=== PATIENT | male | born 1995 | race African-American/Black ===

== ENCOUNTER 2018-03-03 19:23 | Emergency (ER) | payer SELFPAY ==
[2018-03-03 19:33] VITALS: BP 144/73; PULSE 85; TEMP 98.6; BMI 20.9
--- NOTE | 2018-03-03 19:33 | PDOC ---
Rapid Medical Evaluation Time Seen by Provider: 03/03/18 19:31 Medical Evaluation: 03/03/18 19:32 I have performed a brief-in person evaluation of this patient. The patient presents with a chief complaint of:Neg pain on urination. "I had gonorrhea"[id number] ago +++clear penile d/c" Pertinent physical exam findings: Abd soft. NT,ND I have ordered the following:ua/uc/ustd The patient will proceed to the ED for further evaluation.
[2018-03-03 20:19] LABS: URINE APPEARANCE CLEAR; URINE BILIRUBIN NEGATIVE (<2.0 mg/dL); URINE COLOR LTYELLOW; URINE GLUCOSE (UA) NEGATIVE (NEGATIVE); URINE KETONE NEGATIVE (NEGATIVE); URINE LEUK ESTERASE NEGATIVE (NEGATIVE); URINE NITRITE NEGATIVE (NEGATIVE); URINE PROTEIN NEGATIVE (NEGATIVE); URINE UROBILINOGEN NEGATIVE mg/dL (0.2-1.0)
[2018-03-03] MEDS ORDERED: AZITHROMYCIN 500 MG TABLET ONE (20:45)
[2018-03-03] MEDS ORDERED: AZITHROMYCIN 1 GM PACKET PO ONE (20:46)
--- NOTE | 2018-03-03 20:47 | PDOC ---
History of Present Illness - General Chief Complaint: Urinary Problem Stated Complaint: UTI Time Seen by Provider: 03/03/18 19:31 History Source: Patient Exam Limitations: No Limitations - History of Present Illness Travel History: No Initial Comments: 03/03/18 20:42 This 23-year-old male without significant past medical history who presents emergency Department with clear penile discharge, urinary hesitancy, urinary frequency for the past 2 weeks. Patient states she's had two female partners for which she's been having unprotected oral and vaginal sex within the past 4 weeks. Patient denies any fevers, chills, testicular pain, bloody ejaculate or hematuria. Past History - Past Medical History Allergies/Adverse Reactions: Allergies Allergy/AdvReac Type Severity Reaction Status Date / Time No Known Allergies Allergy Verified 03/03/18 19:34 Home Medications: Ambulatory Orders NK [No Known Home Medication] 03/03/18 COPD: No Other medical history: Hx STD - Immunization History Immunization Up to Date: Yes - Suicide/Smoking/Psychosocial Hx Smoking History: Never smoked Have you smoked in the past 12 months: No Information on smoking cessation initiated: No Hx Alcohol Use: Yes (SOCIAL) Drug/Substance Use Hx: No Substance Use Type: None Review of Systems - Review of Systems Able to Perform ROS?: Yes Is the patient limited Bulgarian proficient: No Constitutional: No: Symptoms Reported HEENTM: No: Symptoms Reported Respiratory: No: Symptoms reported Cardiac (ROS): No: Symptoms Reported ABD/GI: No: Symptoms Reported : Yes: See HPI Musculoskeletal: No: Symptoms Reported Integumentary: No: Symptoms Reported Neurological: No: Symptoms reported *Physical Exam - Vital Signs Last Vital Signs Temp Pulse Resp BP Pulse Ox 98.6 F 85 20 144/73 99 03/03/18 19:30 03/03/18 19:30 03/03/18 19:30 03/03/18 19:30 03/03/18 19:30 - Physical Exam General Appearance: Yes: Appropriately Dressed. No: Apparent Distress Gastrointestinal/Abdominal: positive: Normal Bowel Sounds, Soft. negative: Tender Male Genitalia: positive: normal genitalia, discharge (clear). negative: testicular tenderness, testicular mass, epididymus tender ED Treatment Course - ADDITIONAL ORDERS Additional order review: Laboratory Results 03/03/18 19:53 Urine Color Ltyellow Urine Appearance Clear Urine pH 6.0 Ur Specific [place] 1.017 Urine Protein Negative Urine Glucose (UA) Negative Urine Ketones Negative Urine Blood Negative Urine Nitrite Negative Urine Bilirubin Negative Urine Urobilinogen Negative Ur Leukocyte Esterase Negative Medical Decision Making - Medical Decision Making 03/03/18 20:44 A/P: Next line 23-year-old male with history of gonorrhea presents with clear penile discharge, urinary hesitancy, urinary frequency, urethral burning for the past 2 weeks Uncircumcised male penis with clear urethral discharge noted Testicles without any masses. No erythema or tenderness noted Abdomen soft nontender nondistended. UA, urine culture, urine GC Ceftriaxone 250 mg IM Azithromycin 1 g orally Discharge *DC/Admit/Observation/Transfer Diagnosis at time of Disposition: Discharge from penis - Discharge Dispostion Disposition: HOME Condition at time of disposition: Stable Decision to Admit order: No - Referrals - Patient Instructions Additional Instructions: You been treated today with azithromycin 1 g by mouth for treatment of presumed chlamydia You have been treated with Rocephin 250 mg injection for treatment of presumned gonorrhea The syphilis test, gonorrhea and chlamydia testing will not be completed for the next few days. You may call and leave message for return phone call with lab results. Be sure to be clear with your name, birthdate, and phone number Always use condoms with the partners Followup with PMD in one week for reevaluation and retesting. - Post Discharge Activity
== END 2018-03-03 20:53 | disposition home or self-care (01) ==
LOC: JERFT 19:23
DX: R36.9 Urethral discharge, unspecified (principal)
CPT/HCPCS: 36415; 81003; 87086; 87491; 87591; 99281-25

== ENCOUNTER 2020-06-16 02:04 | Emergency (ER) | payer SELFPAY ==
[2020-06-16] MEDS ORDERED: AZITHROMYCIN 500 MG TABLET PO ONE (02:27)
--- NOTE | 2020-06-16 02:30 | PDOC ---
History of Present Illness - General Chief Complaint: Penile Drainage Stated Complaint: STD CHECK Time Seen by Provider: 06/16/20 02:22 History Source: Patient Exam Limitations: No Limitations - History of Present Illness Initial Comments: 25 yo M w a hx of chlamydia comes in with perry discharge from his penis, recent unprotected sex with questionably infected individual, concerned he has chlamydia again. Denies penile sores or pain. ortiz discharge has been present for 2 days. Past History - Medical History Allergies/Adverse Reactions: Allergies Allergy/AdvReac Type Severity Reaction Status Date / Time No Known Allergies Allergy Verified 06/16/20 02:23 Home Medications: Ambulatory Orders Amox-Tr/K Cl [Augmentin - 875Mg Tablet] 1 tab PO BID #14 tablet 03/12/20 COPD: No - Immunization History Immunization Up to Date: Yes - Psycho-Social/Smoking History Smoking History: Never smoked Have you smoked in the past 12 months: No Information on smoking cessation initiated: No - Substance Abuse Hx (Audit-C & DAST Scrn) How often the patient has a drink containing alcohol: Never Score: In Men: 4 or > Positive; In Women: 3 or > Positive: 0 Screen Result (Pos requires Nsg. Audit-10AR): Negative In the last yr the pt used illegal drug/Rx for NonMed reason: No Score: Yes response is considered Positive: 0 Screen Result (Positive result requires Nsg. DAST-10): Negative Review of Systems - Review of Systems Able to Perform ROS?: Yes Comments:: CONSTITUTIONAL: Absent: fever, no chills, no fatigue EYES: Absent: visual changes ENT: Absent: ear pain, no sore throat CARDIOVASCULAR: Absent: chest pain, no palpitations RESPIRATORY: Absent: cough, no SOB GI: Absent: abdominal pain, no nausea, no vomiting, no constipation, no diarrhea GENITOURINARY: Present: Dysuria Absent: no frequency, no hematuria MUSKULOSKELETAL: Absent: back pain, no arthralgia, no myalgia SKIN: Absent: rash NEURO: Absent: headache *Physical Exam - Vital Signs Last Vital Signs Temp Pulse Resp BP Pulse Ox 98.6 F 61 18 107/63 100 06/16/20 02:21 06/16/20 02:21 06/16/20 02:21 06/16/20 02:21 06/16/20 02:21 - Physical Exam GENITOURINARY: Ortiz discharge can be expressed from the urethral tip. No ulcers or warts. GENERAL: Well-appearing, well-nourished. No apparent distress. HEENT: Normocephalic, atraumatic. PERRL, EOM intact. CARDIOVASCULAR: Normal S1, S2. Regular rate and rhythm. PULMONARY: No evidence of respiratory distress. Lungs clear to auscultation bilaterally. No wheezing, rales or rhonchi. ABDOMEN: Soft, non-distended, non-tender. EXTREMITIES: Normal ROM in all four extremities. No gross deformities. SKIN: Warm, dry. No rash NEUROLOGICAL: No focal neurological deficits. Medical Decision Making - Medical Decision Making 25 yo M w a hx of chlamydia comes in with perry discharge from his penis, recent unprotected sex with questionably infected individual, concerned he has chlamy christopher again. Denies penile sores or pain. ortiz discharge has been present for 2 days. MDM: Ortiz discharge consistent with chlamydia Plan: ceftriaxone, azithromycin, ua, uc, sexual abstinence 14 days, partner needs treatment Discharge - Discharge Information Problems reviewed: Yes Clinical Impression/Diagnosis: Chlamydia, Discharge from penis Condition: Improved Disposition: HOME - Admission No - Follow up/Referral Referrals: [facility] [place] [facility] [place] [Provider Group] - Patient Discharge Instructions Patient Printed Discharge Instructions: Chlamydia Additional Instructions: You came into the ED with perry discharge consistent with chlamyidia. We treated you in the emergency room. Please refrain from sexual activity for the next 14 days. Your partner needs to be treated as well. You must return to the Emergency Department with any new complaints, if your symptoms persist and do not improve or if you develop any other new or worsening concerns. You can take over the counter Tylenol or Advil as needed for pain. Take as directed on the package insert. Do not exceed the recommended dosage. As discussed, please call to follow up with your Primary Care physician in 1-2 days to discuss what happened to you in the emergency room, and make sure you are being looked after and taken care of. Your emergency room visit is not complete without this follow up appointment. Please read the attached handouts for further information about your ER visit and what you should do moving forward. Thank you for coming to the [place] [facility]. We hope you feel better soon! Print Language: SINHALA - Post Discharge Activity
[2020-06-16] MEDS ORDERED: AZITHROMYCIN 250 MG TABLET ONE (02:39)
[2020-06-16 02:40] VITALS: BP 107/63; PULSE 61; TEMP 98.6; BMI 21.7
[2020-06-16 02:46] LABS: EPI CELLS 6 /uL (0-25.1); HYALINE CASTS 7 /uL (0-3.1); URINE APPEARANCE CLEAR; URINE BACTERIA 18 /uL (0-1359); URINE BILIRUBIN NEGATIVE (NEGATIVE); URINE COLOR YELLOW; URINE GLUCOSE (UA) NEGATIVE (NEGATIVE); URINE KETONE TRACE (NEGATIVE); URINE LEUK ESTERASE 1+ (NEGATIVE); URINE NITRITE NEGATIVE (NEGATIVE); URINE PROTEIN NEGATIVE (NEGATIVE); URINE RBC 8 /uL (0-23.9); URINE WBC 120 /uL (0-25.8)
--- NOTE | 2020-06-16 02:50 | PDOC ---
Attending Attestation - Resident Resident Name: Ghulam Juarez - ED Attending Attestation I have performed the following: I have examined & evaluated the patient, The case was reviewed & discussed with the resident, I agree w/resident's findings & plan - HPI HPI: 06/16/20 02:50 Pt comes with STD exposure - Physicial Exam PE: 06/16/20 06:59 agree with resident exam - Medical Decision Making 06/16/20 06:59 Pt will be treated prophylactically for GC and chalmydia 06/16/20 06:59 UA shows 120 WBC and only 18 bacteria. Pt is stable for d/c. Discharge - Discharge Information Problems reviewed: Yes Clinical Impression/Diagnosis: Chlamydia, Discharge from penis Condition: Improved Disposition: HOME - Follow up/Referral Referrals: [facility] [place] [facility] [place] [Provider Group] - Patient Discharge Instructions Patient Printed Discharge Instructions: Chlamydia Additional Instructions: You came into the ED with perry discharge consistent with chlamyidia. We treated you in the emergency room. Please refrain from sexual activity for the next 14 days. Your partner needs to be treated as well. You must return to the Emergency Department with any new complaints, if your symptoms persist and do not improve or if you develop any other new or worsening concerns. You can take over the counter Tylenol or Advil as needed for pain. Take as directed on the package insert. Do not exceed the recommended dosage. As discussed, please call to follow up with your Primary Care physician in 1-2 days to discuss what happened to you in the emergency room, and make sure you are being looked after and taken care of. Your emergency room visit is not complete without this follow up appointment. Please read the attached handouts for further information about your ER visit and what you should do moving forward. Thank you for coming to the [place] [facility]. We hope you feel better soon! Print Language: [place] - Post Discharge Activity
== END 2020-06-16 02:52 | disposition home or self-care (01) ==
LOC: JER 02:04
DX: A74.9 Chlamydial infection, unspecified (principal)
CPT/HCPCS: 36415; 81003; 87086; 87491; 87591; 99284-25